=== PATIENT | female | born 1955 | race Caucasian/White ===

== ENCOUNTER → 2020-04-16 | Outpatient (CLI) | payer BC | LOC: MC.RAD 14:25 | DX: Z12.31 Encounter for screening mammogram for malignant neoplasm of breast (principal) ==

== ENCOUNTER → 2021-11-29 | Outpatient (CLI) | payer OTHER | LOC: MC.RAD 09:10 | DX: Z12.31 Encounter for screening mammogram for malignant neoplasm of breast (principal) ==

== ENCOUNTER → 2024-03-11 | Outpatient (CLI) | payer MEDICARE, OTHER | LOC: MC.RAD 09:52 | DX: Z12.31 Encounter for screening mammogram for malignant neoplasm of breast (principal) ==